=== PATIENT | male | born 1960 | race Caucasian/White ===

== ENCOUNTER 2023-04-26 08:25 | Outpatient (CLI) | payer OTHER | END 2023-04-26 08:26 | disposition home or self-care (01) | LOC: CSHMRI 08:25 | PROVIDERS: ATTEND Surgery | DX: M54.30 Sciatica, unspecified side (principal); M47.27 Other spondylosis with radiculopathy, lumbosacral region; M47.26 Other spondylosis with radiculopathy, lumbar region | CPT/HCPCS: 72120; 72148 ==